=== PATIENT | male | born 2000 | race Caucasian/White ===

== ENCOUNTER 2021-04-27 19:33 | Emergency (ER) | payer OTHER ==
[~2021-04-27] VITALS: Ht 190.5 cm; Wt 75.0 kg
[2021-04-27] MEDS ORDERED: ADDERALL XR 3030 MG PO (19:43)
[2021-04-27] MEDS ORDERED: SERTRALINE HCL100 MG PO (19:43)
== END 2021-04-27 20:54 | disposition home or self-care (01) ==
LOC: ED 19:33
DX: R06.00 Dyspnea, unspecified (principal); U09.9 Post COVID-19 condition, unspecified; F98.8 Other specified behavioral and emotional disorders with onset usually occurring in childhood and adolescence; Z79.899 Other long term (current) drug therapy
CPT/HCPCS: 71045; 99284-25